=== PATIENT | male | born 1995 | race Caucasian/White ===

== ENCOUNTER → 2023-12-16 | Outpatient (CLI) | payer OTHER | LOC: M PAIN 13:00 | PROVIDERS: ATTEND Nurse Practitioner Family | DX: G57.91 Unspecified mononeuropathy of right lower limb (principal); Z87.891 Personal history of nicotine dependence ==

== ENCOUNTER → 2024-03-12 | Outpatient (CLI) | payer OTHER ==
[~2024-03-12] MED LIST: ISOVUE-M 300 61% 15ML VIAL As Ordered ONE; LIDOCAINE 1% SDV 30ML VIAL As Ordered ONE; TRIAMCINOLONE ACETONIDE SUSP 40MG/ML 1ML VIAL As Ordered ONE; diazePAM 5MG TABLET As Ordered ONE; oxyCODONE 5MG TAB As Ordered ONE
== END ==
LOC: M PAIN 14:30
PROVIDERS: ATTEND Anesthesiology
DX: G57.91 Unspecified mononeuropathy of right lower limb (principal); Z79.891 Long term (current) use of opiate analgesic
CPT/HCPCS: 64425; J0665; J3301; Q9967

== ENCOUNTER → 2024-04-13 | Outpatient (CLI) | payer OTHER | LOC: M PAIN 10:00 | PROVIDERS: ATTEND Nurse Practitioner Family | DX: G58.8 Other specified mononeuropathies (principal); G89.29 Other chronic pain; Z87.891 Personal history of nicotine dependence ==

== ENCOUNTER → 2024-06-11 | Outpatient (CLI) | payer OTHER | LOC: M PAIN 13:00 | PROVIDERS: ATTEND Anesthesiology | DX: G58.8 Other specified mononeuropathies (principal); Z87.891 Personal history of nicotine dependence | CPT/HCPCS: 64450; J0665; J3301; Q9967 ==

== ENCOUNTER → 2024-07-12 | Outpatient (CLI) | payer OTHER | LOC: M PAIN 17:00 | PROVIDERS: ATTEND Nurse Practitioner Family | DX: G57.91 Unspecified mononeuropathy of right lower limb (principal); G58.8 Other specified mononeuropathies; G89.29 Other chronic pain; Z87.891 Personal history of nicotine dependence ==